=== PATIENT | male | born 1980 | race Caucasian/White ===

== ENCOUNTER 2017-03-20 18:23 | Emergency (ER) | payer OTHER, BC ==
[~2017-03-20] VITALS: Ht 182.9 cm; Wt 143.3 kg
[2017-03-20 20:26] VITALS: BP 150/87
== END 2017-03-20 20:27 | disposition home or self-care (01) ==
LOC: EME 18:23 → EXP 18:23
DX: S05.01XA Injury of conjunctiva and corneal abrasion without foreign body, right eye, initial encounter (principal); W22.8XXA Striking against or struck by other objects, initial encounter; Y92.810 Car as the place of occurrence of the external cause; Z88.1 Allergy status to other antibiotic agents
CPT/HCPCS: 99281; 99283